=== PATIENT | female | born 1960 | race African-American/Black ===

== ENCOUNTER 2020-01-15 04:28 | Emergency (ER) | payer OTHER ==
[~2020-01-15] VITALS: Ht 165.1 cm; Wt 72.6 kg
[~2020-01-15 04:28] MED LIST: CEPHALEXIN500 MG ORAL; CLOBETASOL EMOL15 GM TP; DIPHENHYDRAMINE25 M1 ORAL
--- NOTE | 2020-01-15 04:45 | NUR ---
ED Nurse Note: pt ambulated into ed from home CO of abcess on right upper arm with 7/10 pain. VSS. Pt denies fever, chills, n/v/d. ERMD at bedside.
--- NOTE | 2020-01-15 04:45 | NUR ---
ED Nurse Note: ERMD at bedside for I&D
[2020-01-15 04:49] VITALS: BP 169/98
[2020-01-15] MEDS ORDERED: CEPHALEXIN500 MG ORAL (04:50)
[2020-01-15] MEDS ORDERED: BACTRIM DS TAB1 EAC1 ORAL (04:50)
--- NOTE | 2020-01-15 04:59 | Emergency Room Report ---
History of Present Illness General Chief Complaint: Skin Rash/Abscess Source: Patient Present Illness HPI Patient is a 59-year-old female denies any significant past medical history who presents to the ER complaining of right arm. Abscess for the past week. She denies any fever or chills. She denies any trauma. She denies any history of similar symptoms in the past. Patient does not know when her last tetanus shot was. COVID-19 risk:Contact w/high r: No COVID-19 risk:Travel to affect: No Has patient experienced ortega: No Allergies: Coded Allergies: No Known Allergies (Unverified , 01/15/20) Patient History Past Medical History: none Past Surgical History: other - "size reduction of my arm" Social History: Denies: smoking, alcohol use, drug use Nursing Documentation-[facility] Hx Hypertension: Yes Review of Systems All Other Systems: negative except mentioned in HPI Physical Exam Vital Signs Date Time Temp Pulse Resp B/P (MAP) Pulse Ox O2 Delivery O2 Flow Rate FiO2 01/15/20 04:39 99.0 88 16 169/98 (121) 98 Room Air Sp02 EP Interpretation: reviewed, normal General Appearance: no apparent distress, alert, GCS 15, non-toxic Head: normocephalic, atraumatic Eyes: bilateral eye normal inspection, bilateral eye PERRL ENT: hearing grossly normal, normal pharynx, no angioedema, normal voice Neck: full range of motion, supple/symm/no masses Respiratory: chest non-tender, lungs clear, normal breath sounds, speaking full sentences Cardiovascular #1: regular rate, rhythm, no edema Gastrointestinal: normal bowel sounds, non tender, soft, non-distended, no guarding, no rebound Rectal: deferred Genitourinary: normal inspection, no CVA tenderness Musculoskeletal: back normal, normal range of motion, gait/station normal, non- tender, other - RUE medial surgical incision site from prior surgery healed, R disal axillary abscess with fluctuance and small area of surrounding cellulitis , ttp, no crepitus Neurologic: alert, motor strength/tone normal, oriented x3, sensory intact, responsive, speech normal Psychiatric: judgement/insight normal, memory normal, mood/affect normal, no suicidal/homicidal ideation Skin: no rash Lymphatic: axilla node tender (R) Procedures Incision and Drainage Incision and Drainage : Consent: Verbal Site: R axilla Blade Size: needle aspiration I & D Procedure: betadine prep Wound Location: axilla Volume Anesthetic (ccs): 6 Splint Applied?: No Sling Applied?: No Patient Tolerated: Well Complications: None Progress tdap ordered, wound culture sent Medical Decision Making Diagnostic Impression: Primary Impression: Abscess ER Course Local needle needle aspiration performed. Patient started on Bactrim as well as Keflex. Skin marker used to delineate the areas of erythema. Patient will return if it worsens. Wound culture sent. Patient updated on tetanus. After discussing risks and benefits of further diagnostics, treatment plans, as well as indications for and risks of admission, the patient is agreeable to being discharged home. I have explained that their evaluation and treatment in the emergency department today is an important step towards them achieving better health but that their evaluation today is not intended to replace further evaluation and treatment by a physician in their local clinic. I have explained that while the current findings suggest no immediate life threatening emergency they will require further evaluation and treatment by a physician of their choice in their area. They understand that it will be necessary for them to review the final reports of their ED visit with their clinic physician. We have reviewed indications for return to the Emergency Department. I have explained that additional time may need to pass and/or additional testing as an outpatient may be necessary before a definitive diagnosis can be made. They tell me they are willing to follow up as instructed within the timeframe I recommend. They appear to understand what we discussed. Additionally they understand that if they are unable to be seen by an outpatient physician they are welcome, and in fact should, return to the Emergency Department for a repeat evaluation. The patient is stable at time of discharge. Last Vital Signs Date Time Temp Pulse Resp B/P (MAP) Pulse Ox O2 Delivery O2 Flow Rate FiO2 01/15/20 04:39 99.0 88 16 169/98 (121) 98 Room Air Disposition: HOME, SELF-CARE Condition: Stable Scripts Cephalexin* (KEFLEX*) 500 Mg Capsule 500 MG ORAL EVERY 8 HOURS for 10 Days, CAP Prov: Shaunna Hannah M.D. 01/15/20 Trimethoprim/Sulfamethoxazole 160/800* (BACTRIM DS TABLET*) 1 Each Tablet 1 TAB ORAL Q12H, #20 TAB 0 Refills Prov: Shaunna Hannah M.D. 01/15/20 Patient Instructions: Abscess Additional Instructions: The patient was provided with discharge instructions, notified to follow-up with a primary care doctor and or specialist in the next 24-48 hours, and to return to the ED if they have worsening of their symptoms. Please note that this report is being documented using [employer] technology. This can lead to erroneous entry secondary to incorrect interpretation by the dictating instrument. Shaunna Hannah M.D. Jan 15, 2020 04:59
--- NOTE | 2020-01-15 04:59 | NUR ---
ED Nurse Note: abcess specimen sent to lab
[2020-01-15] MEDS ORDERED: Cephalexin 500mg cap ORAL ONE (05:00)
[2020-01-15] MEDS ORDERED: Bactrim-DS 1 tab ORAL ONE (05:00)
[2020-01-15] MEDS ORDERED: Tetanus/Diptheria/Pertussis IM ONE (05:00)
--- NOTE | 2020-01-15 05:05 | NUR ---
ED Nurse Note: all medication administered; pt tolerated well. no ss of distress noted. no adverse reactions noted
[2020-01-15 05:11] VITALS: BP 169/98
--- NOTE | 2020-01-15 05:11 | NUR ---
ER DISCHARGE NOTE: Patient is cleared to be discharged home per ERMD, pt is aox4, on room air, with stable vital signs. pt was given dc and prescription instructions, pt was able to verbalize understanding, pt id band removed. pt is able to ambulate with steady gait. pt took all belongings.
== END 2020-01-15 05:11 | disposition home or self-care (01) ==
LOC: EMR 04:46
DX: L02.411 Cutaneous abscess of right axilla (principal); Z23 Encounter for immunization; I10 Essential (primary) hypertension
CPT/HCPCS: 90471; 90715; 99283